=== PATIENT | female | born 2000 | race Caucasian/White ===

== ENCOUNTER 2021-04-25 15:59 | Emergency (ER) | payer OTHER ==
[~2021-04-25] VITALS: Ht 170.2 cm; Wt 86.2 kg
[2021-04-25 16:08] VITALS: BP 131/73
[2021-04-25] MEDS ORDERED: ZOLOFT100 MG PO (16:12)
[2021-04-25] MEDS ORDERED: SEROQUEL 100 M100 M1 PO (16:12)
== END 2021-04-25 17:15 | disposition home or self-care (01) ==
LOC: ER 15:59
DX: I10 Essential (primary) hypertension (principal); S91.112A Laceration without foreign body of left great toe without damage to nail, initial encounter; W22.8XXA Striking against or struck by other objects, initial encounter; Y93.89 Activity, other specified; Y92.89 Other specified places as the place of occurrence of the external cause; Y99.8 Other external cause status